=== PATIENT | male | born 1945 | race Caucasian/White ===

== ENCOUNTER 2022-04-09 18:30 | Emergency (ER) | payer MEDICARE ==
[2022-04-09 20:51] LABS: HEMOGLOBIN 15.1 gm/dl (14.0-17.5); RED BLOOD COUNT 4.94 M/UL (4.20-5.50)
[2022-04-09 21:16] LABS: BUN/CREATININE RATIO 32 (0-10)
[2022-04-09] MEDS ORDERED: ANTIVERT25 M1 PO (23:28)
[2022-04-09] MEDS ORDERED: ZOFRAN ODT 4 MG4 MG PO (23:28)
== END 2022-04-10 | disposition home or self-care (01) ==
LOC: ER1 18:30
PROVIDERS: Family Medicine
DX: H81.399 Other peripheral vertigo, unspecified ear (principal); N18.9 Chronic kidney disease, unspecified; R11.0 Nausea
CPT/HCPCS: 70450; 80053; 81001; 82550; 82553; 83735; 84439; 84443; 84484; 85025; 93005; 96374; 99284; J2405